=== PATIENT | female | born 1990 | race American Indian/Alaskan Native ===

== ENCOUNTER 2019-08-28 14:30 | Outpatient (CLI) | payer MEDICAID | END 2019-08-28 14:31 | disposition home or self-care (01) | LOC: LABHHL 14:30 | PROVIDERS: ATTEND Surgery | DX: N63.10 Unspecified lump in the right breast, unspecified quadrant (principal) | CPT/HCPCS: 88305; 88312; 88313; 88342 ==

== ENCOUNTER 2019-09-10 12:28 | Outpatient (CLI) | payer OTHER ==
--- NOTE | 2019-09-10 14:31 | Mammography Report ---
DIGITAL DIAGNOSTIC MAMMOGRAM WITH CAD, 09/10/2019 INDICATION: Granulomatous mastitis with enlarging rest mass. RIGHT BREAST MASS AND ENLARGED LYMPH NOD E TECHNIQUE: Digital right mammographic imaging was performed. This examination was interpreted with the benefit of Computer-aided Detection analysis. COMPARISON: None available. FINDINGS: Breast Density: The breast is mostly fatty. 2 biopsy clips are identified within an irregular mass measuring 11.5 x 8.1 x 5.9 cm. The clip placed today has the shape of a bone. A previously placed clip has the shape of a coil IMPRESSION: An 11.5 cm breast mass with concordant clip placement. Follow up recommendation: No recall. Post biopsy imaging. A "normal" or negative report should not discourage follow up or biopsy of a clinically significant f inding. A written summary of these findings will be mailed to the patient. The patient will be entered into a mammography reporting system which will generate a reminder letter for the patient's next appointmen t at the appropriate interval. According to the [employer], yearly mammograms are recommended starting at age 40 and continuing as long as a woman is in good health. Breast MRI is recommended for women with an kedar roximately 20-25% or greater lifetime risk of breast cancer, including women with a strong family his tory of breast or ovarian cancer and women who have been treated for Hodgkin's disease. Signer Name: Bakari Georges MD Signed: 09/10/2019 2:27 PM Workstation Name: [id number]
--- NOTE | 2019-09-10 14:39 | Ultrasound Report ---
ULTRASOUND-GUIDED NEEDLE CORE BIOPSY RIGHT BREAST WITH CLIP PLACEMENT and ULTRASOUND-GUIDED NEEDLE CO RE BIOPSY RIGHT AXILLARY LYMPH NODE WITH CLIP PLACEMENT CLINICAL: Granulomatous mastitis with an enlarging mass and an abnormal axillary lymph node. FINDINGS: The procedure was explained to the patient and informed consent was obtained. Ultrasound demonstrated an irregular heterogeneous hypoechoic mass centered at 11:00 5 cm from the ni pple. It measures 5.3 x 1.3 x 5.0 cm. Ultrasound of the axilla demonstrates a 3 cm lymph node with th ickened cortex measuring 6 mm.. I marked the breast with a felt tip marker and a timeout was called. The skin was prepped with Chloro -Prep and anesthetized with 1% lidocaine. Needle core biopsy of the axillary lymph node was performed through a small dermatotomy using ultraso und guidance, 2% lidocaine with epinephrine for deep anesthesia and a 18-gauge Achieve biopsy device. 2 cores were obtained and placed in formalin. A U-shaped clip was deployed within the node. Needle core biopsy of the mass at 11:00 was performed through a small dermatotomy using ultrasound gu idance, 2% lidocaine with epinephrine for deep anesthesia and a 14-gauge Achieve biopsy device. Multi ple cores were obtained and placed in formalin. A clip was deployed within the mass. The patient tolerated the procedure well and there were no apparent complications. Hemostasis was ach ieved with minimal effort and sterile dressings were applied. A post procedure mammogram demonstrated concordant clip deployment. The clip is adjacent to a coil-sh aped clip that was recently placed by Dr. Myers. She left the department in good condition and was g iven instructions for wound care and follow-up. IMPRESSION: Uncomplicated ultrasound guided needle core biopsy with clip placement right breast and r ight axillary lymph node. Signer Name: Bakari Georges MD Signed: 09/10/2019 2:34 PM Workstation Name: [id number]
== END 2019-09-10 12:29 | disposition home or self-care (01) ==
LOC: SPVWC 12:28
PROVIDERS: ATTEND Surgery
DX: N61.0 Mastitis without abscess (principal); I89.8 Other specified noninfective disorders of lymphatic vessels and lymph nodes; N63.11 Unspecified lump in the right breast, upper outer quadrant
CPT/HCPCS: 38505; 76942; 88305; 88312; 88342

== ENCOUNTER 2021-07-01 09:51 | Inpatient (IN) | payer OTHER ==
[2021-07-01] MEDS ORDERED: LACTATED RINGERS 1,000 ML IV ONE (10:59)
[2021-07-01] MEDS ORDERED: AMPICILLIN/NS 2 GM/100 ML 2 GM/100 ML BAG IV ONE (11:01)
[2021-07-01] MEDS ORDERED: LIDOCAINE (2%) 20 MG/1 ML VIAL 20 ML MDV INFILTRATI ONE (11:02)
[2021-07-01] MEDS ORDERED: BUTORPHANOL 2 MG/1 ML INJ IV PRN (11:02)
[2021-07-01] MEDS ORDERED: MINERAL OIL 30 ML ORAL LIQD PO PRN (11:02)
[2021-07-01] MEDS ORDERED: miSOPROStol 200 MCG TAB PR PRN (11:02)
[2021-07-01] MEDS ORDERED: LOPERAMIDE 2 MG CAP PO PRN (11:02)
[2021-07-01] MEDS ORDERED: ePHEDrine SULFATE 50 MG/1 ML INJ IV PRN (11:02)
[2021-07-01] MEDS ORDERED: ACETAMINOPHEN 325 MG TAB PO PRN ×2 (11:02→17:23)
[2021-07-01] MEDS ORDERED: ONDANSETRON 4 MG/2 ML INJ IV PRN ×2 (11:02→17:23)
[2021-07-01] MEDS ORDERED: OXYTOCIN 10 UNIT/1 ML INJ IM PRN (11:02)
[2021-07-01] MEDS ORDERED: CARBOPROST TROMETHAMINE 250 MCG/1 ML INJ IM PRN (11:02)
[2021-07-01] MEDS ORDERED: TERBUTALINE 1 MG/1 ML INJ SUB-Q PRN (11:02)
[2021-07-01] MEDS ORDERED: NALOXONE 0.4 MG/1 ML INJ IV PRN (11:02)
[2021-07-01] MEDS ORDERED: LACTATED RINGERS 1,000 ML IV SCH (11:15)
--- NOTE | 2021-07-01 11:18 | History and Physical Report ---
History of Present Illness Date of examination: 07/01/21 Date of admission: 07/01/2021 Chief complaint: contractions History of present illness: Pt reports this is her third , and history of 2 full term vaginal deliveries without complications; reports babies weighed 6lbs each. Pt denies h/o complications, blood transfusion, herpes, and any significant medical and surgical history. Pt denies smoking, alcohol, and drug use. Pt with car seat and reports stable housing and +support system. Pt reports using public bus for transportation to hospital. Pt admits to limited care of only a few visits with [facility] and [facility] of 07/09/21. Past History Past Medical History: no pertinent history Past Surgical History: no surgical history Family/Genetic History: none Social history: no significant social history - Obstetrical History Expected Date of Delivery: 07/09/21 Actual Gestation: 38 Week(s) 6 Day(s) : 3 Para: 2 Hx # Term Pregnancies: 2 Number of Pregnancies: 0 Spontaneous Abortions: 0 Induced : 0 Number of Living Children: 2 Medications and Allergies Allergies Allergy/AdvReac Type Severity Reaction Status Date / Time No Known Allergies Allergy Verified 07/01/21 11:06 Home Medications Medication Instructions Recorded Confirmed Last Taken Type No Known Home Medications [No 07/01/21 07/01/21 Unknown History Reported Home Medications] Active Meds: Active Medications Acetaminophen (Acetaminophen 325 Mg Tab) 650 mg PO Q4H PRN PRN Reason: Pain, Mild (1-3) Butorphanol Tartrate (Butorphanol 2 Mg/1 Ml Inj) 1 mg IV Q2H PRN PRN Reason: Pain, Moderate(4-6) LABOR PAIN Carboprost Tromethamine (Carboprost Tromethamine 250 Mcg/1 Ml Inj) 250 mcg IM ONCE PRN PRN Reason: Uterine Bleeding Ephedrine Sulfate (Ephedrine Sulfate 50 Mg/1 Ml Inj) 10 mg IV Q2M PRN PRN Reason: Hypotension Lactated Ringer's (Lactated Ringers) 1,000 mls @ 125 mls/hr IV BOLUS ONE Stop: 07/01/21 18:58 Ampicillin Sodium (Ampicillin/Ns 2 Gm/100 Ml) 2 gm in 100 mls @ 100 mls/hr IV ONCE ONE; Protocol Stop: 07/01/21 12:00 Lactated Ringer's (Lactated Ringers) 1,000 mls @ 125 mls/hr IV DIRECT BABS Oxytocin/Sodium Chloride (Pitocin/Ns 30 Unit/500ml) 30 units in 500 mls @ 40 mls/hr IV TITR BABS; Protocol Ampicillin Sodium (Ampicillin/Ns 1 Gm/50 Ml) 1 gm in 50 mls @ 100 mls/hr IV Q4H BABS; Protocol Lidocaine (Lidocaine (2%) 20 Mg/1 Ml Vial 20 Ml Mdv) 20 ml INFILTRATI ONCE ONE Stop: 07/01/21 11:03 Loperamide HCl (Loperamide 2 Mg Cap) 2 mg PO ONCE PRN PRN Reason: give with Hemabate Mineral Oil (Mineral Oil 30 Ml Oral Liqd) 30 ml PO QHS PRN PRN Reason: Constipation Misoprostol (Misoprostol 200 Mcg Tab) 800 mcg [place] ONCE PRN PRN Reason: Uterine Bleeding Naloxone HCl (Naloxone 0.4 Mg/1 Ml Inj) 0.1 mg IV Q2MIN PRN PRN Reason: Res Rate </= 8 or 02 SAT < 92% Ondansetron HCl (Ondansetron 4 Mg/2 Ml Inj) 4 mg IV Q8H PRN PRN Reason: Nausea And Vomiting Oxytocin (Oxytocin 10 Unit/1 Ml Inj) 10 unit IM ONCE PRN PRN Reason: Uterine Bleeding Terbutaline Sulfate (Terbutaline 1 Mg/1 Ml Inj) 0.25 mg SUB-Q ONCE PRN PRN Reason: Hyperstimulation/Hypertonicity Review of Systems All systems: negative Genitourinary: contractions, no vaginal bleeding, no leakage of fluid, no genital sores - Vital Signs Vital signs: Vital Signs Pulse BP 84 140/93 07/01/21 10:18 07/01/21 10:18 Temp Pulse Resp BP Pulse Ox 41 L 123/73 94 07/01/21 10:41 07/01/21 10:37 07/01/21 10:41 - Physical Exam Breasts: Positive: deferred Cardiovascular: Regular rate Lungs: Positive: Normal air movement Abdomen: Positive: normal appearance, soft. Negative: tenderness Genitourinary (Female): Positive: normal external genitalia, normal perenium Vulva: both: normal Vagina: Positive: normal moisture Uterus: Positive: normal size, normal contour, other (gravid, appears at term) Anus/Rectum: Positive: normal perianal skin, heme negative Extremities: Positive: normal - Obstetrical FHR: auscultation normal, category 1 Uterine Contraction Monitor Mode: External Cervical Dilatation: 7 Cervical Effacement Percentage: 100 station: -2 Uterine Contraction Pattern: Regular Uterine Tone Measurement Phase: Resting Results Result Diagrams: 07/01/21 11:00 07/01/21 11:00 All other labs normal. labs unknown Assessment and Plan Pt presents to triage with c/o contractions less than 5 mins apart since this morning around 0500. Pt denies VB and LOF. SVE performed 7/100/-2 BBOW and vertex presentation. POC reviewed with pt for admission with labs and antibiotics. Questions encouraged and answered. Pt verbalizes understanding and agrees to POC. VS reviewed and BP with labile pressures. Dr. March made aware and orders placed. - Patient Problems (1) Active labor Current Visit: Yes Status: Acute (2) care insufficient Current Visit: Yes Status: Acute Plan to address problem: GBS prophylaxis treatment continuous monitoring work up order set preeclampsia labs ordered
[2021-07-01 11:39] LABS: Hematocrit 35.7 % (30.3-42.9); Hemoglobin 11.6 gm/dl (10.1-14.3); Mean Corpuscular HGB Conc 32 % (30-34); Mean Corpuscular Volume 92 fl (79-97); Platelet Count 292 K/mm3 (140-440); Red Cell Distribution Width 13.2 % (13.2-15.2)
[2021-07-01] MEDS ORDERED: OXYTOCIN DRIP 30 UNITS/500 ML BAG IV SCH (12:00)
[2021-07-01 12:03] LABS: Alanine Aminotransferase 7 units/L (7-56); Uric Acid 4.1 mg/dL (3.5-7.6)
--- NOTE | 2021-07-01 12:08 | Procedure Note ---
OB Delivery Note - Delivery Date of Delivery: 07/01/21 Product Ambassador: DELORES KIDD Estimated blood loss: 100cc - Vaginal Delivery presentation: vertex Delivery position: OA Intrapartum events: no care Delivery induction: none Delivery monitor: external FHT, external uterine Route of delivery: Delivery placenta: spontaneous Delivery cord: nuchal cord (x1), 3 umbilical vessels Episiotomy: none Delivery laceration: none Anesthesia: none Delivery comments: pericare done mother and baby left LDR stable - Infant A at 1 minute: 8 at 5 minutes: 9 Infant Gender: Female (6lbs 10oz)
[2021-07-01 12:13] LABS: Hepatitis C Virus Antibody Non-Reactive (NonReactive)
[2021-07-01] MEDS ORDERED: AMPICILLIN/NS 1 GM/50 ML 1 GM/50 ML BAG IV SCH (15:00)
[2021-07-01 15:22] LABS: Amphetamine Screen,Urine Negative; Benzodiazepines Screen,Urine Negative; Cannabinoid Screen,Urine Negative; Cocaine Screen,Urine Negative; Methadone Screen,Urine Negative; Opiate Screen,Urine Negative
[2021-07-01] MEDS ORDERED: PROMETHAZINE 25 MG TAB PO PRN (17:23)
[2021-07-01] MEDS ORDERED: HYDROCORTISONE 25 MG RECTAL SUPP PR PRN (17:23)
[2021-07-01] MEDS ORDERED: MAGNESIUM HYDROXIDE (MOM) ORAL LIQD UDC PO PRN (17:23)
[2021-07-01] MEDS ORDERED: IBUPROFEN 600 MG TAB PO SCH (17:23)
[2021-07-01] MEDS ORDERED: oxyCODONE /ACETAMINOPHEN 5-325MG TAB PO PRN (17:23)
[2021-07-01] MEDS ORDERED: PRENATAL VIT27-FE FUMARATE-FOLIC ACID VIT TAB PO SCH (17:23)
[2021-07-01] MEDS ORDERED: BENZOCAINE/MENTHOL 20/0.5% TOP SPRAY 56 GM TP PRN (17:23)
[2021-07-01] MEDS ORDERED: LANOLIN/ZINC/DIMETHICONE (LANSINOH) 7 GM TP PRN (17:23)
[2021-07-01] MEDS ORDERED: diphenhydrAMINE 25 MG CAP PO PRN (17:23)
[2021-07-01] MEDS ORDERED: WITCH HAZEL/ GLYCERIN PAD TP PRN (17:23)
[2021-07-02] MEDS: DOCUSATE SODIUM 100 MG CAP PO SCH ×3 (00:05→22:11)
[2021-07-02] MEDS: IBUPROFEN 800 MG TAB PO SCH ×3 (00:05→22:11)
[2021-07-02 01:18] LABS: Hematocrit 31.3 % (30.3-42.9); Hemoglobin 10.2 gm/dl (10.1-14.3)
[2021-07-02] MEDS ORDERED: TETANUS,DIPH,PERTUSS(ACELL) VACCINE 0.5 ML SYRINGE IM ONE (06:00)
[2021-07-02] MEDS ORDERED: MEASLES, MUMPS & RUBELLA 12,500 UNIT/0.5 ML VACCINE SUB-Q ONE (12:09)
--- NOTE | 2021-07-02 15:14 | Discharge Summary ---
Providers - Providers Date of Admission: 07/01/21 11:18 Date of discharge: 07/02/21 (pt desires discharge home) Attending physician: LANDY WOOD MD 07/01/21 11:07 Consult to Case Management [CONS] Routine Services Needed at Discharge: Other Notified:: computer input Phone number called:: [phone] Was contact made?: No Time called:: 15:56 Comment:: walk-in Additional Physician Instructions: see chart Primary care physician: LOIDA LARA Hospitalization Reason for admission: active labor, IUP at term Delivery: Episiotomy: none Laceration: none Other procedures: none complications: none Discharge diagnosis: IUP at term delivered [place] baby: female Condition at discharge: Good Disposition: HOME / SELF CARE / HOMELESS - Discharge Diagnoses (1) Active labor Status: Acute (2) care insufficient Status: Acute (3) (spontaneous vaginal delivery) Status: Acute Comment: Pt reports ambulating, voiding, eating, and without difficulties. Pt denies all complaints. Reports desires to discharge home. Fundus firm below umbilicus with scant vaginal bleeding. Breast assessment normal, . Extremities normal and without edema or discoloration. Discharge precautions and follow up instructions reviewed. Pt verbalizes understanding. Plan - Provider Discharge Summary Activity: routine, no sex for 6 weeks, no heavy lifting 4 weeks, no strenuous exercise Diet: routine Instructions: routine Additional instructions: [] Smoking cessation referral if applicable(refer to patient education folder for contact #) [] Refer to [facility] Booklet Call your doctor immediately for: * Fever > 100.5 * Heavy vaginal bleeding ( >1 pad per hour) * Severe persistent headache * Shortness of breath * Reddened, hot, painful area to leg or breast Please call [phone] and schedule your visit in 4 weeks. Thank you! - Follow up plan Follow up: LOIDA LARA, COMPUTING [employer]UTOR-[employer] [Primary Care Provider] - 7 Days LANDY WOOD MD [Staff Physician] - 7 Days Forms: [facility] Discharge Summary
[2021-07-03] MEDS: IBUPROFEN 800 MG TAB PO SCH (05:27)
[2021-07-03 12:21] VITALS: BP 129/88
== END 2021-07-03 16:45 | disposition home or self-care (01) | DRG 775 ==
LOC: TRG 09:51 → APU 09:53 → LD 11:00 → TRG 11:16 → LD 11:18 → OB 15:46
PROVIDERS: ADMIT Student in an Organized Health Care Education/Training Program; ATTEND Student in an Organized Health Care Education/Training Program
PROC: 10E0XZZ Delivery of Products of Conception, External Approach (ICD-10-PCS; principal; 2021-07-01)
PROC: 3E0234Z Introduction of Serum, Toxoid and Vaccine into Muscle, Percutaneous Approach (ICD-10-PCS; 2021-07-02)
DX: O69.81X0 Labor and delivery complicated by cord around neck, without compression, not applicable or unspecified (principal); Z3A.38 38 weeks gestation of pregnancy; Z37.0 Single live birth; Z20.822 Contact with and (suspected) exposure to COVID-19; Z23 Encounter for immunization
CPT/HCPCS: 36415; 80307; 82565; 83615; 84450; 84460; 84550; 85014; 85018; 85027; 85461; 86592; 86706; 86762; 86803; 86850; 86900; 86901; 87806; 90471; 90715; G0378; J0290; J2590; J2790; J7120; U0003